=== PATIENT | female | born 1995 | race Caucasian/White ===

== ENCOUNTER → 2019-05-15 | Outpatient (REF) | payer OTHER ==
[2019-05-15 22:43] LABS: INFLUENZA A AMPLIFICATION POSITIVE (NEGATIVE); INFLUENZA B AMPLIFICATION NEGATIVE (NEGATIVE)
== END ==
LOC: M LAB REF 13:21
PROVIDERS: ATTEND Physician Assistant Medical
DX: J11.1 Influenza due to unidentified influenza virus with other respiratory manifestations (principal)

== ENCOUNTER → 2019-08-16 | Outpatient (REF) | payer OTHER, MEDICAID ==
[2019-08-16 16:29] LABS: IRON (FE) 180 UG/DL (50-170)
[2019-08-16 17:09] LABS: VITAMIN B12 LEVEL 729 PG/ML (247-911)
== END ==
LOC: M LAB REF 16:07
PROVIDERS: ATTEND Registered Nurse
DX: D64.9 Anemia, unspecified (principal); L65.9 Nonscarring hair loss, unspecified

== ENCOUNTER → 2019-10-21 | Outpatient (CLI) | payer OTHER, MEDICAID ==
--- NOTE | 2019-12-01 14:34 | SLEEPCENT ---
DATE: 10/21/2019 ORDERED BY: Edita Smith NP Nocturnal polysomnography was performed for evaluation of sleep physiology in this patient with difficulty initiating and maintaining sleep. Seven hours and 6 minutes of data were reviewed. There were 386 minutes of sleep identified. Sleep latency was normal at 9.5 minutes. REM latency was normal at 64 minutes. Sleep architecture was fairly good. There was some minor fragmentation. Four REM cycles were noted. Overall sleep efficiency was 91.6%. The patient's electrocardiogram showed sinus with an average heart rate 48 beats per minutes. EEG showed essentially normal waveforms for awake and sleep. There were only 2 respiratory events identified of ten seconds in duration or greater for an apnea-hypopnea index of 0.3. Snoring was noted particularly late in the study, and respiratory related arousals occurred 1.9 times per hour. There were no significant oxygen desaturations. Periodic limb movement index was 0.5. IMPRESSION: Normal nocturnal polysomnography with snoring. MTDD
== END ==
LOC: M SLEEP 20:00
PROVIDERS: ATTEND Nurse Practitioner Adult Health
DX: G47.30 Sleep apnea, unspecified (principal)

== ENCOUNTER → 2020-04-16 | Outpatient (REF) | payer OTHER, MEDICAID | LOC: M LAB REF 11:35 | PROVIDERS: ATTEND Physician Assistant | DX: D23.5 Other benign neoplasm of skin of trunk (principal); D23.71 Other benign neoplasm of skin of right lower limb, including hip ==

== ENCOUNTER → 2020-12-06 | Outpatient (REF) | payer BC ==
[2020-12-06 23:49] LABS: GC DNA AMPLIFICATION NEGATIVE (NEGATIVE)
== END ==
LOC: M LAB REF 19:33
PROVIDERS: ATTEND Physician Assistant
DX: R30.0 Dysuria (principal)